=== PATIENT | male | born 1970 | race Hispanic/Latino ===

== ENCOUNTER 2018-12-01 20:54 | Emergency (ER) | payer OTHER ==
[~2018-12-01] VITALS: Ht 160 cm; Wt 75.3 kg
--- OUTSIDE RECORDS SUMMARY | 2018-12-01 20:58 | XMS REPORT | Clinical Summary ---
Author Author [facility] Organization [facility] Address Unknown Phone Unavailable Care Team Providers Care Test Center Manager Name Role Phone Jessica Cartagena MD PCP Allergies No Known Allergies Medications End Date Status Medication Sig Dispensed Refills Start Date Active niacin 500 mg tablet Take 500 mg 0 by mouth daily (with breakfast). Active omega-3/dha/epa/dpa/fish Take by 0 oil (OMEGA-3 2100 OR) mouth. Active lisinopril (PRINIVIL, Take 1 tablet 90 tablet 0 ZESTRIL) 20 mg by mouth 8 tabletIndications: HTN, daily. goal below 140/90 03/05/2018 Discontinued lisinopril (PRINIVIL, Take 20 mg by 0 ZESTRIL) 20 mg tablet mouth daily. Active Problems Problem Noted Date Overweight (BMI 25.0-29.9) 01/07/2018 Hyperlipidemia 01/07/2018 Essential hypertension 01/07/2018 Encounters Care Team Description Date Type Specialty Jordyn Parker MD Pure hyperglyceridemia (Primary Dx); Vitamin D insufficiency; Encounter for vaccination; Encounter to discuss test results; HTN, goal below 140/90; Dietary counseling 03/05/2018 Office Visit Family Practice Tom Camacho Interpretation 03/05/2018 Telephone Jessica Cartagena MD Routine history and physical examination of adult (Primary Dx); Essential hypertension; Hyperlipidemia, unspecified hyperlipidemia type; Screen for STD (sexually transmitted disease); Need for Tdap vaccination; Encounter for vitamin deficiency screening; Screening for diabetes mellitus; Overweight (BMI 25.0-29.9); Insomnia, unspecified type; Encounter for dietary counseling and surveillance 01/07/2018 Office Visit Family Practice Basil Rose Interpretation 01/07/2018 Telephone after 11/30/2017 Immunizations Name Administration Dates Next Due Tdap (Tetanus Toxoid, 01/07/2018 Reduced Diphtheria Toxoid And Acellular Pertussis, Absorbed) Family History Medical History Relation Name Comments No Known Problems Brother No Known Problems Brother No Known Problems Brother No Known Problems Brother No Known Problems Daughter No Known Problems Father No Known Problems Maternal Grandfather No Known Problems Maternal Grandmother No Known Problems Mother No Known Problems Paternal Grandfather No Known Problems Paternal Grandmother No Known Problems Sister No Known Problems Sister No Known Problems Sister No Known Problems Sister No Known Problems Son No Known Problems Son Relation Name Status Comments Brother Alive Brother Alive Brother Alive Brother Alive Daughter Alive Father Alive Maternal Grandfather Maternal Grandmother Mother Alive Paternal Grandfather Paternal Grandmother Sister Alive Sister Alive Sister Alive Sister Alive Son Alive Son Alive Son Alive Social History Date Tobacco Use Types Packs/Day Years Used Never Smoker Smokeless Tobacco: Never Used Drinks/Week oz/Week Comments Alcohol Use Yes Food Insecurity Answer Date Recorded Within the past 12 months, you worried that your Sometimes true 01/07/2018 food would run out before you got money to buy more. Within the past 12 months, the food you bought Sometimes true 01/07/2018 just didn't last and you didn't have money to get more. Sex Assigned at Date Recorded Not on file Industry Job Start Date Occupation Not on file Not on file Not on file Travel End Travel History Travel Start No recent travel history available. 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 CALIBRATION TECHNICIAN Blood Pressure 98 03/05/2018 7:39 AM CALIBRATION TECHNICIAN Pulse 36.6 C (97.9 F) 03/05/2018 7:39 AM CALIBRATION TECHNICIAN Temperature 18 03/05/2018 7:39 AM CALIBRATION TECHNICIAN Respiratory Rate - - Oxygen Saturation - - Inhaled Oxygen Concentration 75.5 kg (166 lb 8 oz) 03/05/2018 7:39 AM CALIBRATION TECHNICIAN Weight 157.5 cm (5' 2") 03/05/2018 7:39 AM CALIBRATION TECHNICIAN Height 30.45 03/05/2018 7:39 AM CALIBRATION TECHNICIAN Body Mass Index Plan of Treatment Health Maintenance Due Date Last Done Comments IMM Influenza Seasonal 03/14/2019 Postponed from 01/13/2019Jan to June (>/=19 yrs) (Patient Refused) Procedures Comments Procedure Name Priority Date/Time Associated Diagnosis SYPHILIS MONITOR FOR Routine 01/07/2018 Screen for STD (sexually TREATMENT 9:05 AM CDT transmitted disease) VIT D, 25-HYDROXY Routine 01/07/2018 Encounter for vitamin 9:05 AM CDT deficiency screening THYROID STIMULATING Routine 01/07/2018 Routine history and HORMONE (TSH) 9:05 AM CDT physical examination of adult URINALYSIS Routine 01/07/2018 Routine history and 9:05 AM CDT physical examination of adult LIPID PROFILE Routine 01/07/2018 Routine history and 9:05 AM CDT physical examination of adult Hyperlipidemia, unspecified hyperlipidemia type HEPATITIS PANEL Routine 01/07/2018 Screen for STD (sexually 9:05 AM CDT transmitted disease) HEMOGLOBIN A1C Routine 01/07/2018 Routine history and 9:05 AM CDT physical examination of adult Screening for diabetes mellitus COMPREHENSIVE METABOLIC Routine 01/07/2018 Routine history and PANEL 9:05 AM CDT physical examination of adult Essential hypertension Hyperlipidemia, unspecified hyperlipidemia type CHLAM/GC DNA AMPLI Routine 01/07/2018 Screen for STD (sexually 9:05 AM CDT transmitted disease) CBC/DIFF Routine 01/07/2018 Routine history and 9:05 AM CDT physical examination of adult after 11/30/2017 Results * VIT D, 25-HYDROXY (01/07/2018 9:05 AM CDT) Vit D, 25.8 (L) 30 - 100 ng/mL [facility] 25-Hydroxy Comment: IMMUNOLOGY Vitamin D deficiency has been defined by the [place] [employer] and End[employer] Society guideline as a level of serum 25-OH Vitamin D less than 20 ng/mL. The Endocrine Society further defines Vitamin D insufficiency as a level between 21 and 29 ng/mL and sufficiency as a level between 30 and 100 ng/mL. Specimen Performing Organization Address City/State/Zipcode Phone Number [facility] I[facility]UNOLOGY * HEMOGLOBIN A1C (01/07/2018 9:05 AM CDT) Hemoglobin A1c 5.3 4.3 - 6.1 % [facility]UN[facility] Est Average 105.4 mg/dL [facility] Gluc IMMUNOLOGY Specimen Blood Performing Organization Address [facility] Phone Number [facility] * COMPREHENSIVE METABOLIC PANEL(DBIL NOT INCLUDED) (01/07/2018 9:05 AM CDT) Pathologist [facility] Albumin 4.8 4.2 - 5.5 g/dL [facility] 1 Calcium 9.9 8.6 - 10.3 mg/dL [facility] 1 CO2 29 21 - 31 mmol/L [facility] 1 Chloride 101 98 - 107 mmol/L [facility] 1 Creatinine 0.80 0.7 - 1.3 mg/dL [facility] 1 Glucose 91 70 - 110 mg/dL [facility] 1 Alkaline 64 34 - 104 U/L [facility] Phosphatase, S 1 Potassium 4.3 3.5 - 5.1 mmol/L [facility] 1 Sodium 139 136 - 145 mmol/L [facility] 1 ALT 25 7 - 52 U/L [facility] 1 AST (SGOT) 22 13 - 39 U/L [facility] 1 BUN 15 7 - 25 mg/dL [facility] 1 Bilirubin, 0.5 0.2 - 1.2 mg/dL [facility] Total 1 Protein, Total, 7.6 6.0 - 8.3 g/dL [facility] Serum 1 GFR, Estimated >60 mL/min/1.73 m2 [facility] 1 eGFR If Africn >60 mL/min/1.73 m2 [facility] Am 1 Anion Gap 9 [facility] 1 Specimen Blood Performing Organization Address [facility] Phone Number [facility] 1 * CHLAM/GC DNA AMPLI (01/07/2018 9:05 AM CDT) Pathologist [facility] Chlamydia trach Negative NEG [facility] IMMUNOLOGY N gonorrhoeae Negative NEG [facility] Comment: IMMUNOLOGY This test utilizes MEDSEEK Aptima Combo 2 Assay for target amplification of rRNA for the qualitative detection of Chlamydia trachomatis and Neisseria gonorrhea. Spec Urine [facility] Description Specimen Other (Specify in Comments) - Voided, urine Performing Organization Address City/[facility]/[place] Phone Number [facility] * TSH (01/07/2018 9:05 AM CDT) TSH 1.12 0.57 - 3.74 uIU/mL [facility] 1 Specimen Blood Performing Organization Address [facility] Phone Number [facility] 1 * UA CHEMISTRIES (01/07/2018 9:05 AM CDT) Color Yellow [facility] 3 Clarity Clear [facility] 3 Specific 1.012 1.001 - 1.035 [facility] Hermann 3 pH 7.0 5 - 8 [facility] 3 Protein Negative NEG [facility] 3 Glucose Negative NEG [facility] 3 Ketones Negative NEG [facility] 3 Bilirubin Negative NEG [facility] 3 Nitrate Negative NEG [facility] 3 Urobilinogen,Se <1.0 0.2 - 1.0 EU/dL [facility] mi-Qn 3 Leukocyte Negative NEG [facility] 3 Occult Blood Negative NEG [facility] 3 Specimen Urine Performing Organization Address [facility] Phone Number [facility] 3 * SYPHILIS MONITOR FOR TREATMENT (01/07/2018 9:05 AM CDT) RPR Nonreactive NR Titer [facility] I[facility]UN[facility] Specimen Blood Performing Organization Address [facility] Phone Number [facility]MMUNOLOG[facility] * LIPID PROFILE (01/07/2018 9:05 AM CDT) Cholesterol 210 mg/dL [facility] Comment: 1 REFERENCE RANGE: Desirable: <200 mg/dL Borderline: 200-240 mg/dL High Risk: >240 mg/dL Triglyceride 163 (H) <150 mg/dL [facility] Comment: 1 REFERENCE RANGE: Normal: <150 mg/dL Borderline High: 150-199 mg/dL High: 200-499 mg/dL Very High: >ks=830 mg/dL HDL 42 mg/dL [facility] Comment: 1 Increased CHD risk: <40 mg/dL Decreased CHD risk: >60 mg/dL LDL 135 mg/dL [facility] Comment: 1 REFERENCE RANGE: Optimal: <100 mg/dL Near Optimal: 100-129 mg/dL Borderline High: 130-159 mg/dL High: 160-189 mg/dL Very High: >et=256 mg/dL Specimen Blood Performing Organization Address [facility]/Zipcode Phone Number [facility] * HEPATITIS PANEL (01/07/2018 9:05 AM CDT) HCV IgG Negative NEG [facility] 4 HBsAg Negative NEG [facility] 4 HAV, IgM Negative NEG [facility] 4 HBcAb, IgM Negative NEG [facility] 4 Specimen Blood Performing Organization Address [facility]/Zipcode Phone Number [facility] 4 * CBC/DIFF (01/07/2018 9:05 AM CDT) WBC 8.0 4.5 - 12.0 K/uL [facility] 2 RBC 5.43 4.60 - 6.20 M/uL [facility] 2 Hemoglobin 16.5 14.0 - 18.0 g/dL [facility] 2 Hematocrit 48.4 40.0 - 54.0 % [facility] 2 MCV 89 82 - 92 fL [facility] 2 MCH 30.4 27.0 - 31.0 pg [facility] 2 MCHC 34.1 32.0 - 36.0 g/dL [facility] 2 RDW 42.1 35.1 - 43.9 fL [facility] 2 Platelets 295 150 - 400 K/uL [facility] 2 Mean Platelet 10.3 9.4 - 12.4 fL [facility] Volume 2 Percent NRBC 0.0 [facility] 2 Absolute NRBC 0.00 [facility] 2 Neutrophils 66.1 34.0 - 67.9 % [facility] 2 Lymphs 24.5 21.8 - 50.0 % [facility] 2 Monocytes 6.5 5.3 - 12.0 % [facility] 2 Eos 2.1 0.8 - 5.0 % [facility] 2 Basos 0.4 0.2 - 1.2 % [facility] 2 Immature 0.4 0.0 - 0.5 [facility] Granulocytes 2 Neutrophils 5.31 1.78 - 5.36 K/uL [facility] (Absolute) 2 Lymphs 1.97 1.32 - 3.57 K/uL [facility] (Absolute) 2 Monocytes(Absol 0.52 0.30 - 0.82 K/uL [facility] seminole) 2 Eos (Absolute) 0.17 0.04 - 0.54 K/uL [facility] 2 Baso (Absolute) 0.03 0.01 - 0.08 K/uL [facility] 2 Immature Grans 0.03 0.00 - 0.03 K/uL [facility] (Abs) 2 Specimen Blood Performing Organization Address City/State/Zipcode Phone Number [facility] 2 after 11/30/2017 Insurance Type Payer Benefit Subscriber ID Effective Phone Address Plan / Dates Group [facility] SELF-PAY SELF-PAY xxxxxx [id number] [place] [address]
--- OUTSIDE RECORDS SUMMARY | 2018-12-01 20:58 | XMS REPORT ---
Author Author [facility] Address Unknown Phone Unavailable Care Team Providers Care Assistant Counsel Name Role Phone Unavailable Unavailable Problems This patient has no known problems. Allergies, Adverse Reactions, Alerts This patient has no known allergies or adverse reactions. Medications This patient has no known medications. Encounters Start Date/Time End Date/Time Encounter Type Admission Type Attending Clinicians Care Facility Care Department Encounter ID 2018-03-05 07:38:22 2018-03-05 07:38:22 Outpatient [facility] [id number]
--- NOTE | 2018-12-01 21:47 | Diagnostic Imaging Report ---
CT BRAIN WO HISTORY: Trauma COMPARISON: None. TECHNIQUE: CT of the head was performed without the administration of intravenous contrast. Coronal/sagittal reformations were created. One or more of the following dose reduction techniques were used: Automated exposure control, adjustment of the mA and/or kV according to patient size, and/or utilization of iterative reconstruction technique. DISCUSSION: Scalp/Skull: No abnormalities. Brain sulci: Appropriate for patient's age. Ventricles: Normal in size and configuration. No hydrocephalus. Extra-axial spaces: No masses or fluid collections. Parenchyma: The right cerebellar tonsil extends up to 7 mm below the foramen magnum. Otherwise, no abnormal densities. No mass, hemorrhage, or large vascular territory acute infarct. Dural sinuses: No abnormal densities. Sellar/Suprasellar region: Intact. Skull base: Intact. Incidental findings: None. IMPRESSION: 1. No acute intracranial abnormalities. 2. Mild Chiari I malformation. Signed by: Dr. Mark Patel M.D. on 12/01/2018 9:44 PM
[2018-12-01 23:22] VITALS: BP 149/90
== END 2018-12-01 23:35 | disposition home or self-care (01) ==
LOC: ER 20:54
DX: S06.0X1A Concussion with loss of consciousness of 30 minutes or less, initial encounter (principal); S00.83XA Contusion of other part of head, initial encounter; W22.8XXA Striking against or struck by other objects, initial encounter; Y99.0 Civilian activity done for income or pay; I10 Essential (primary) hypertension
CPT/HCPCS: 70450; 99283